=== PATIENT | male | born 1990 | race Caucasian/White ===

== ENCOUNTER 2016-06-27 19:01 | Emergency (ER) | payer OTHER ==
[~2016-06-27] VITALS: Ht 180.3 cm; Wt 74.2 kg
[~2016-06-27 19:01] MED LIST: ACET-1222 PO; PRLSR20 PO; PSYL55.43 PO
[2016-06-27 19:07] VITALS: TEMP 37.6; Ht 180.3 cm; Wt 74.2 kg
[2016-06-27] MEDS ORDERED: SODIUM CHLORIDE 0.9% 1000ML 1,000 ML IV STA ×3 (19:20→19:28)
[2016-06-27] MEDS ORDERED: ONDANSETRON 8 MG/54 ML D5W IV STA (19:20)
[2016-06-27] MEDS ORDERED: HYDROmorphone INJ 0.5 MG/0.5 ML SYR IV STA (19:28)
[2016-06-27 20:04] LABS: BASO % 0.1 %; BASO ABS # 0.01 K/uL (0-0.2); COMPLETE YES; EOS % 0.4 %; HEMATOCRIT 46.5 % (42-52); IG% 0.2 %; LYMPH % 2.2 %; LYMPH ABS # 0.28 K/uL (1.2-3.4); MEAN CELL VOLUME 84.7 fL (80-100); MEAN CORPUSCULAR HEMOGLOBIN 31.1 pg (25-34); MEAN CORPUSCULAR HGB CONC 36.8 g/dl (32-36); MEAN PLATELET VOLUME 11.5 fL (7.4-10.4); MONO % 6.7 %; NEUT % 90.4 %; PLATELET COUNT 178 K/uL (130-400); RED BLOOD COUNT 5.49 M/uL (4.7-6.1); WHITE BLOOD COUNT 12.91 K/uL (4.8-10.8)
[2016-06-27 20:21] LABS: BUN/CREATININE RATIO 15.4 (10-20); CREATININE 0.97 mg/dl (0.60-1.40); POTASSIUM 4.3 mmol/L (3.5-5.1)
[2016-06-27] MEDS ORDERED: ONDANSETRON HOME PACK 4MG OD TAB PO ONE (22:30)
[2016-06-27] MEDS ORDERED: DiphenhydrAMINE HCL 50 MG/ML VIAL IV STA (23:27)
[2016-06-27] MEDS ORDERED: METOCLOPRAMIDE HCL INJ 5 MG/ML 2 ML VIAL IV STA (23:27)
[2016-06-28] MEDS ORDERED: DiphenhydrAMINE HCL 50 MG/ML VIAL IV STA (00:11)
[2016-06-28 00:55] VITALS: BP 110/61; PULSE 93; O2SAT 96
--- NOTE | 2016-06-28 01:58 | EMERGENCY ROOM VISIT NOTE ---
History Report prepared by [place]: Dereck Medina Under the Supervision of: Dr. Juan Edwards M.D. First contact with patient: 19:13 Chief Complaint: DEHYDRATION Stated Complaint: DEHYDRATION, VOMITING AND DIARRHEA History of Present Illness The patient is a 26 year old male who presents to the Emergency Room with complaints of intermittent vomiting and diarrhea beginning 5.5 hours ago. He has a history of IBS, and has had a colonoscopy in the recent past. He states that he has not been able to hold down any food or liquid since his symptoms began. The last time he ate was 10 hours ago. The patient also complains of centralized abdominal pain. He states that his pain is persistent, but worsens shortly before his episodes of vomiting or diarrhea. He rates his pain as a 7/ 10 in severity. The patient has associated sore throat, chills and fevers. He notes that his friends have beens sick with similar symptoms. Pt denies LOC, headache, diaphoresis, visual changes, neck pain, chest pain, breathing difficulties, back pain, melena, hematochezia, urinary symptoms, numbness, weakness, lymphadenopathy, rash, or other complaints. Source of History: patient Onset: 5.5 hours ago Quality: other (vomiting and diarrhea) Timing: intermittent Associated Symptoms: + abdominal pain (7/10 in severity), + chills, + fevers , + sorethroat Review of Systems See HPI for pertinent positives and negatives. A total of ten systems were reviewed and were otherwise negative. Past Medical & Surgical Medical Problems: (1) IBS (irritable bowel syndrome) Family History No pertinent family history stated. 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 No edema. EYES: Normal conjunctiva. Sclera non-icteric. OROPHARYNX: Lips, tongue, and mucosa unremarkable. No erythema or exudate. NECK: Supple. No nuchal rigidity. FROM. No adenopathy. RESPIRATORY: CTA bilaterally. No wheezes rales or rhonchi. CARDIAC: Borderline tachycardic rate, normal rhythm. ABDOMEN: Soft, non distended. Diffuse abdominal tenderness to palpation, worse in the epigastrium. No rebound or guarding. MUSCULOSKELETAL: Atraumatic. No edema. NEURO: Normal sensorium. SKIN: No rash or jaundice noted Medical Decision & Procedures Laboratory Results 06/27/16 19:56 Red Blood Count 5.49, Mean Corpuscular Volume 84.7, Mean Corpuscular Hemoglobin 31.1, Mean Corpuscular Hemoglobin Concent 36.8, Mean Platelet Volume 11.5, Neutrophils (%) (Auto) 90.4, Lymphocytes (%) (Auto) 2.2, Monocytes (%) (Auto) 6.7, Eosinophils (%) (Auto) 0.4, Basophils (%) (Auto) 0.1, Neutrophils # (Auto) 11.69, Lymphocytes # (Auto) 0.28, Monocytes # (Auto) 0.86, Eosinophils # (Auto) 0.05, Basophils # (Auto) 0.01 06/27/16 19:56 Test 06/27/16 19:56 White Blood Count 12.91 K/uL (4.8-10.8) Red Blood Count 5.49 M/uL (4.7-6.1) Hemoglobin 17.1 g/dL (14.0-18.0) Hematocrit 46.5 % (42-52) Mean Corpuscular Volume 84.7 fL (80-100) Mean Corpuscular Hemoglobin 31.1 pg (25-34) Mean Corpuscular Hemoglobin Concent 36.8 g/dl (32-36) Platelet Count 178 K/uL (130-400) Mean Platelet Volume 11.5 fL (7.4-10.4) Neutrophils (%) (Auto) 90.4 % Lymphocytes (%) (Auto) 2.2 % Monocytes (%) (Auto) 6.7 % Eosinophils (%) (Auto) 0.4 % Basophils (%) (Auto) 0.1 % Neutrophils # (Auto) 11.69 K/uL (1.4-6.5) Lymphocytes # (Auto) 0.28 K/uL (1.2-3.4) Monocytes # (Auto) 0.86 K/uL (0.11-0.59) Eosinophils # (Auto) 0.05 K/uL (0-0.5) Basophils # (Auto) 0.01 K/uL (0-0.2) RDW Standard Deviation 39.2 fL (36.4-46.3) RDW Coefficient of Variation 12.7 % (11.5-14.5) Immature Granulocyte % (Auto) 0.2 % Immature Granulocyte # (Auto) 0.02 K/uL (0.00-0.02) Anion Gap 7.0 mmol/L (3-11) Est Creatinine Clear Calc Drug Dose 120.1 ml/min Estimated GFR () 123.5 Estimated GFR (Non- 106.6 BUN/Creatinine Ratio 15.4 (10-20) Calcium Level 9.0 mg/dl (8.5-10.1) Total Bilirubin 1.2 mg/dl (0.2-1) Direct Bilirubin 0.2 mg/dl (0-0.2) Aspartate Amino Transf (AST/SGOT) 15 U/L (15-37) Alanine Aminotransferase (ALT/SGPT) 25 U/L (12-78) Alkaline Phosphatase 68 U/L (45-117) Total Protein 7.8 gm/dl (6.4-8.2) Albumin 4.5 gm/dl (3.4-5.0) Lipase 169 U/L (73-393) Laboratory results reviewed by me Medications Administered Medications (Trade) Dose Ordered Sig/Nickolas Route Start Time Stop Time Status Last Admin Dose Admin Sodium Chloride (Nss 1000ml) 1,000 ml @ 999 mls/hr Q1H1M STAT IV 06/27/16 19:20 06/27/16 20:20 DC 06/27/16 20:32 999 MLS/HR Ondansetron HCl (Zofran 8mg Iv) 8 mg NOW STAT IV 06/27/16 19:20 06/27/16 19:21 DC 06/27/16 20:32 8 MG Hydromorphone HCl 0.5 mg 0.5 mg NOW STAT IV 06/27/16 19:28 06/27/16 19:30 DC 06/27/16 20:33 0.5 MG Sodium Chloride (Nss 1000ml) 1,000 ml @ 999 mls/hr Q1H1M STAT IV 06/27/16 19:28 06/27/16 20:28 DC 06/27/16 20:32 999 MLS/HR Ondansetron HCl (ZOFRAN ODT 4MG Home Pack) 1 homepack UD ONCE PO 06/27/16 22:30 06/27/16 22:31 DC 06/27/16 23:08 1 HOMEPACK Metoclopramide HCl (Reglan Inj) 10 mg NOW STAT IV 06/27/16 23:27 06/27/16 23:28 DC 06/27/16 23:37 10 MG Diphenhydramine HCl (Benadryl Inj) 12.5 mg NOW STAT IV 06/27/16 23:27 06/27/16 23:28 DC 06/27/16 23:37 12.5 MG Diphenhydramine HCl (Benadryl Inj) 25 mg NOW STAT IV 06/28/16 00:11 06/28/16 00:12 DC 06/28/16 00:15 25 MG ED Course 1923: The patient was evaluated in room C2. A complete history and physical exam was performed. 1919: Ordered Zofran 8 mg IV, NSS 1000 mL @ 999 mL/hr IV, NSS 1000 mL 125 mL/hr IV. 1927: Ordered NSS 1000 mL @ 999 mL/hr IV, Dilaudid Inj 0.5 mg IV. 2134: I reassessed the patient. He is feeling better, and has tolerated a Gatorade. 2229: Ordered Zofran Odt 4 mg home pack PO. 2326: I checked in on the patient. He has begun to feel very restless. Ordered Benadryl Inj 12.5 mg IV, Reglan Inj 10 mg IV. 0011: The patient states that he continues to feel very "jittery" after the Reglan. Ordered Benadryl Inj 25 mg IV. 5: I reevaluated the patient. Discussed results and discharge instructions: he verbalized understanding and agreement. The patient is ready for discharge. Medical Decision Triage Nursing notes reviewed and agree them. The patient's history was concerning for nausea, vomiting, diarrhea, and abdominal pain. Differential diagnosis: Etiologies such as gastroenteritis, food borne illness, infections, appendicitis , diverticulitis, inflammatory bowel disease, GI bleed, biliary pathology, as well as others were entertained. Physical examination findings: As above. No tenderness in McBurney's point. No peritoneal findings. ER treatment provided: IV hydration 2 L NSS. IV Zofran 8 mg IV Dilaudid 0.5 mg On reassessment the patient felt better. Patient was tolerating p.o. intake. The patient had some slight nausea prior to discharge. Reglan 10 mg IV Benadryl 12.5 mg IV. On reassessment the patient was feeling better with regards to his nausea but did note feeling restless which is likely from the Reglan. He was given a second dose of IV Benadryl 25 mg and then on reassessment felt significantly better and desired discharge. Diagnostics interpretation by me: Slight leukocytosis and CBC. Chemistry panel, LFTs and lipase unremarkable.The labs revealed Imaging studies: Deferred Clinically the patient is doing well. He was treated as above and is doing much better. His symptoms have resolved. He did not have any peritoneal findings. Given the frequency of the gastroenteritis-like illness going around I suspect she has the same. He worsens in any way he will be back to the Emergency Room. I did discuss return instructions and precautions. I gave my usual and customary discussion regarding this issue.By the evaluation outlined above emergent etiologies such as appendicitis, diverticulitis, mesenteric ischemia, aortic pathology, inflammatory bowel disease, renal colic, PUD, biliary pathology, UTI, as well as others were deemed relatively unlikely. The patient was informed about the findings as listed above. All questions were answered and he was pleased with the treatment. Return instructions were outlined and the patient was discharged in stable condition. Outpatient prescription management: Zofran Referral: The patient was referred to his primary care physician for follow-up in 2 to 3 days for a recheck of the current condition. The chart was completed utilizing [employer] [place] - 2 voice recognition software. Grammatical errors, random word insertions, pronoun errors, and incomplete sentences are an occasional consequence of this system due to software limitations, ambient noise, and hardware issues. Any formal questions or concerns about the content, text, or information contained within the body of this dictation should be directly addressed to the physician for clarification. Impression Primary Impression: Nausea vomiting and diarrhea Additional Impression: Abdominal pain Scribe Attestation The scribe's documentation has been prepared under my direction and personally reviewed by me in its entirety. I confirm that the note above accurately reflects all work, treatment, procedures, and medical decision making performed by me. Departure Information Dispostion Home / Self-Care Prescriptions No Active Prescriptions or Reported Meds Referrals Abiel Rao M.D. (PCP) Forms HOME CARE DOCUMENTATION FORM, IMPORTANT VISIT INFORMATION, WORK / SCHOOL INSTRUCTIONS Patient Instructions A Signature Page, My [facility] [employer] Additional Instructions VOMITING INSTRUCTIONS: DO NOT drive, drink alcohol, operate machinery, or perform dangerous activities today. You were given medications in the ER that can affect your ability to safely function or operate a vehicle. Zofran(odansetron) tablets 4mg: Take one and allow it to dissolve in your mouth every four to six hours as needed for nausea or vomiting. Ibuprofen(Motrin, Advil) may be used for fever or pain. Use 600mg every six hours as needed. Take with food. Avoid using more than 2400mg in a 24 hour period. Do not use 2400mg per day for more than three consecutive days without physician direction. Prolonged inappropriate use can lead to stomach upset or ulcers. (AND/OR) Acetaminophen(Tylenol) may be used for fever or pain. Use 1000mg every six hours as needed. Avoid using more than 4000mg in a 24 hour period. Rest and drink plenty of fluids as tolerated. Slow sips of water or sports drinks are recommended instead of large amounts all at once. Continue current medications. Once your stomach is settled start with a clear liquid diet (jello, soup broth, etc.) and then advance as tolerated. You should avoid full, heavy meals for about 24 hrs from the time your symptoms resolved. Return to the ER for persistent vomiting, fevers, abdominal pain, chest pains, difficulty breathing, black or bloody stools, worsening of your condition, or as needed. Follow up with your primary physician in 2-3 days for a recheck of your current condition
== END 2016-06-28 00:55 | disposition home or self-care (01) ==
LOC: C.EDB 19:03 → C.EDC 06-28 00:55
DX: R11.2 Nausea with vomiting, unspecified (principal); R19.7 Diarrhea, unspecified; R10.9 Unspecified abdominal pain; K58.9 Irritable bowel syndrome, unspecified